=== PATIENT | female | born 1955 | race Caucasian/White ===

== ENCOUNTER 2022-05-10 14:10 | Emergency (ER) | payer MEDICARE ==
[~2022-05-10] VITALS: Ht 180.3 cm; Wt 124.7 kg
[2022-05-10] MEDS ORDERED: Amoxicillin500 MG PO (14:19)
[2022-05-10] MEDS ORDERED: TRAZ100 PO (14:21)
[2022-05-10] MEDS ORDERED: Vistaril50 MG PO (14:24)
== END 2022-05-10 15:00 | disposition home or self-care (01) ==
LOC: ER 14:10
DX: K04.7 Periapical abscess without sinus (principal); Z79.899 Other long term (current) drug therapy; Z76.0 Encounter for issue of repeat prescription
CPT/HCPCS: 99282

== ENCOUNTER → 2022-06-07 | Outpatient (CLI) | payer MEDICARE, OTHER ==
[~2022-06-07] MED LIST: Amoxicillin500 MG PO; TRAZ100 PO; Vistaril50 MG PO
[2022-06-07 17:10] LABS: BASOPHILS ABSOLUTE AUTO 0.05 K/mm3 (0.00-0.23); BASOPHILS PERCENT AUTO 1 % (0-2); EOSINOPHILS ABSOLUTE AUTO 0.14 K/mm3 (0.00-0.68); EOSINOPHILS PERCENT AUTO 2 % (0-6); Hematocrit 43.6 % (33.0-51.0); IMMATURE GRAN ABSOLUTE AUTO 0.09 K/mm3 (0.00-0.10); IMMATURE GRAN PERCENT AUTO 1 % (0-1); LYMPHOCYTES ABSOLUTE AUTO 1.35 K/mm3 (0.84-5.20); LYMPHOCYTES PERCENT AUTO 15 % (21-46); MONOCYTES ABSOLUTE AUTO 0.92 K/mm3 (0.16-1.47); MONOCYTES PERCENT AUTO 11 % (4-13); Mean Corpuscular HGB Conc 32.1 g/dL (31.5-36.5); Mean Corpuscular Volume 91 fL (80-100); Mean Platelet Volume 9.7 fL (9.1-12.4); NEUTROPHILS ABSOLUTE AUTO 6.24 K/mm3 (1.96-9.15); NEUTROPHILS PERCENT AUTO 71 % (41-73); Platelet Count 209 K/mm3 (150-400); RDW Coefficient Variation 13.3 % (11.7-14.2); RDW Standard Deviation 44.6 fL (35.1-46.3); Red Blood Cell Count 4.82 M/mm3 (3.80-5.20); White Blood Cell Count 8.79 K/mm3 (4.00-11.30)
[2022-06-07 17:35] LABS: CHOL/HDL RATIO 2.9; Cholesterol 157 mg/dL (50-200); HDL Cholesterol 54 mg/dL (>39); LDL/HDL RATIO 1.2; Low Density Lipoprotein Chol 67 mg/dL (<110); Thyroid Stimulating Hormone 2.415 uIU/mL (0.360-4.800); Triglycerides 181 mg/dL (30-160); Very Low Density Lipoprot Chol 36 mg/dL (6-32)
[2022-06-07 18:11] LABS: Percent Saturation 18.1 % (15.0-50.0)
== END | disposition home or self-care (01) ==
LOC: LAB SHORT 17:06
PROVIDERS: Physician Assistant
DX: E03.9 Hypothyroidism, unspecified (principal); E78.5 Hyperlipidemia, unspecified; E11.8 Type 2 diabetes mellitus with unspecified complications; I10 Essential (primary) hypertension
CPT/HCPCS: 80061; 82728; 83036; 83540; 83550; 84443; 85025

== ENCOUNTER 2022-11-22 09:06 | Day surgery (SDC) | payer MEDICARE, OTHER ==
[2022-11-22] VITALS (18 sets, daily range): BP systolic 93–147; BP diastolic 51–89
[~2022-11-22] VITALS: Ht 175.3 cm; Wt 101.1 kg
[~2022-11-22 09:06] MED LIST changes: +AMLO5 PO; +ATOR20 PO; +Cymbalta20 MG PO; +DICLOFENAC SOD100 GM TOP; +GABA100 PO; +HYDHCL25 PO; +LEVOTHYROXINE100 M10 PO; +METF500 PO; +METO25ER PO; +QUET25 PO
[2022-11-22] MEDS ORDERED: TRAZ100 PO (09:46)
--- NOTE | 2022-11-22 10:00 | NUR ---
Into sds via wheelchair. Pt reports 5/10 right hip pain. History, Chart, Medications and Allergies reviewed before start of procedure.Murmur auscultated.Lungs clear T/O to Auscultation. Patient confirms NPO status and agrees with scheduled surgery. Patient reports completing Chlorhexadine shower X2 prior to admission to hospital.Surgical site prepped with 2% Chlorhexidine cloth wipe.
--- NOTE | 2022-11-22 15:34 | NUR ---
Pt arrived to [facility] on own bed at 1515, awake, a/o x 4, pleasant/cooperative. post op vs commended and stable. surgical dressing with gauze and mefix tape x 2 L hip/knee c/d/i; pt reports pain at 5/10. capillary refill operative limb <3 seconds. pt denies n/v.
--- NOTE | 2022-11-22 17:07 | NUR ---
1430-pt tolerating PO intake, provided analgesia per mar, oriented to room/call light, appears to be resting calmly
[2022-11-23 00:15] VITALS: BP 110/72
[2022-11-23 03:49] VITALS: BP 114/70
[2022-11-23 03:49] LABS: BASOPHILS ABSOLUTE AUTO 0.03 K/mm3 (0.00-0.23); BASOPHILS PERCENT AUTO 0 % (0-2); EOSINOPHILS PERCENT AUTO 0 % (0-6); Hematocrit 35.7 % (33.0-51.0); Hemoglobin 11.5 g/dL (11.5-16.0); IMMATURE GRAN ABSOLUTE AUTO 0.04 K/mm3 (0.00-0.10); IMMATURE GRAN PERCENT AUTO 0 % (0-1); LYMPHOCYTES ABSOLUTE AUTO 1.29 K/mm3 (0.84-5.20); LYMPHOCYTES PERCENT AUTO 10 % (21-46); MONOCYTES ABSOLUTE AUTO 1.36 K/mm3 (0.16-1.47); MONOCYTES PERCENT AUTO 10 % (4-13); Mean Corpuscular HGB Conc 32.2 g/dL (31.5-36.5); Mean Corpuscular Volume 93 fL (80-100); Mean Platelet Volume 10.1 fL (9.1-12.4); NEUTROPHILS ABSOLUTE AUTO 10.53 K/mm3 (1.96-9.15); NEUTROPHILS PERCENT AUTO 80 % (41-73); Platelet Count 196 K/mm3 (150-400); RDW Coefficient Variation 13.1 % (11.7-14.2); RDW Standard Deviation 44.6 fL (35.1-46.3); Red Blood Cell Count 3.83 M/mm3 (3.80-5.20); White Blood Cell Count 13.25 K/mm3 (4.00-11.30)
[2022-11-23 04:06] LABS: Magnesium, Blood 1.8 mg/dL (1.6-2.4)
[2022-11-23 04:07] LABS: Bun/Creatinine Ratio 27.5 (12.0-20.0); Creatinine, Blood 0.51 mg/dL (0.40-1.00); Potassium, Blood 3.9 mmol/L (3.5-5.5)
--- NOTE | 2022-11-23 04:15 | NUR ---
SHIFT SUMMARY POD 1 POSTERIOR R SHERLY. NO ACUTE CHANGES OVERNIGHT. A&O X4. GAUZE/TAPE DRESSING C/D/I. PT REPORT PAIN WITHIN ACCEPTABLE LIMITS, MEDICATED PER EMAR. PT USE FWW FOR TOILETING, NO BM THIS SHIFT. VS WNL FOR PT. PT REPORTS SHE DID NOT SLEEP WELL THROUGHOUT THE NIGHT, PLESANT AND ENGAGES IN CONVERSATION. CALL LIGHT WITHIN REACH, BED IN LOWEST POSTION, WILL REPORT TO DAY NURSE.
[2022-11-23 07:59] VITALS: BP 131/74
--- NOTE | 2022-11-23 09:26 | NUR ---
ASSUMPTION OF CARE ASSUMED CARE AT APPROX 0700. PT AOX4, EASILY AROUSABLE W/ VERBAL STIMULI. PLEASANT, RECEPTIVE TO EDUCATION - REINFORCEMENT FREQ NEEDED IN REGARDS TO MOBILITY. PT REPORTS DIFFICULTY SLEEPING DURING THE NIGHT. VSS. PT REPORTED R HIP PAIN 5/10 THIS MORNING, ADMINISTERED SCHEDULED PO TYLENOL ORDERED W/ NO RELIEF REPORTED. PAIN INCREASED 7/10, PO NORCO 5MG ADMINISTERED, RELIEF REPORTED. POD 1 FOR R SHERLY, POSTERIOR APPROACH. PRECAUTIONS IN PLACE AND FREQ REINFORCED. DRESSINGS CHANGED BY DR. PISANO THIS MORNING. AQUACEL DRESSINGS, C/D/I. PT AMBULATES W/ SBA FWW. WORKED W/ OCCUPATIONAL THERAPY THIS MORNING. PT REQUIRES AN AFTERNOON SESSION W/ CAREGIVER PRESENT. CAREGIVER CALLED, IS ON HER WAY NOW. PLAN TO WORK W/ PHYSICAL THERAPY TODAY. CALL LIGHT IN REACH.
--- NOTE | 2022-11-23 13:12 | NUR ---
PT DECLINING AFTERNOON THERAPY SESSION. MD CONTACTED. PT EDUCATED THAT IF SHE LEAVES PRIOR TO MEETING DC CRITERIA THAT IS WOULD BE CONSIDERED LEAVING AMA. PT AGREED TO STAY FOR AFTERNOON SESSION. THERAPY NOTIFIED.
--- NOTE | 2022-11-23 14:49 | NUR ---
Pt. is awake and welcome my visit. Caregiver is present. Pt. is pleasant and a life review was facilitated. Considered matters of rick and belief. Listened with empathy, interest and engagement. Pt. verbalized her condience in recovery. Prayed with Pt. Pt. verbalized gratitude for the spiritual care visit.
[2022-11-23 15:49] VITALS: BP 93/63
--- NOTE | 2022-11-23 16:29 | NUR ---
Patient required reminders and cuing on hip precautions and using her walker throughout the day. Discussed these and risks of dilocation extensively with patient and caregiver. Staff and therapy concerned about patient safety at home as she only has a caregiver for 20hrs a week. Discussed with DR. Keen, talked with patient regarding friends/family to provide 24/7 care. She reports she does have people available that are going to help her and she plans on staying at a friends house, starting tonight. Palacios the caregiver assures me that she will stay with her until the friend comes to get her and she has been in contact with her case reviewer to increase her hours for the patient. Caregiver states "I will stay with her all the time, after my hours as a friend or until other friends are with her so she is never alone"
--- NOTE | 2022-11-23 17:28 | NUR ---
DISCHARGE SUMMARY S/P R SHERLY, POD 1. VSS. TOLERATING PO INTAKE. VOIDING. PT AMBULATING W/ SBA FWW & GB - REQUIRING FREQUENT REINFORCEMENT OF POSTERIOR HIP PRECAUTIONS. PT/OT ZAKI COMPLETED THIS MORNING, PT WAS NOT CLEARED BY THERAPY THIS MORNING - SECOND PHYSICAL THERAPY SESSION COMPLETED W/ PHYSICAL THERAPY STATING THAT PT NEEDS CLOSE MONITORING TO REINFORCE HIP PRECAUTIONS. DISCUSSED W/ JUANITO AND . JUANITO TO PT RM TO DISCUSS DC PLAN. PT STATES THAT CAREGIVER AND OR FRIENDS WILL BE AVAILABLE AT ALL TIMES. PT CONFIRMS THAT SHE HAS TIMES DESIGNATED FOR 16/10 COVERAGE BETWEEN CAREGIVER AND FRIENDS FOR REINFORCEMENT/ASSISTANCE W/ MOBILITY RESTRICTIONS AT HOME. PROVIDED DISCHARGE EDUCATION, STRONGLY REINFORCING POSTERIOR HIP PRECAUTIONS AND SAFE MOBILITY AT HOME TO PT AND CAREGIVER. IV RMVD. PERSONAL BELONGINGS W/ PT. PT TRANSFERRED TO PERSONAL VEHICLE VIA WHEELCHAIR.
== END 2022-11-23 16:45 | disposition home or self-care (01) ==
LOC: ORSCMMR 09:06 → SURS 09:06 → ORSCMMR 09:08 → ORD 10:45 → ORSCMMR 10:45 → SURS 15:11 → ORSCMMR 11-23 16:45
PROVIDERS: Orthopaedic Surgery
PROC: 0SR90JA Replacement of Right Hip Joint with Synthetic Substitute, Uncemented, Open Approach (ICD-10-PCS; principal; 2022-11-22 10:45)
DX: M16.11 Unilateral primary osteoarthritis, right hip (principal); E11.9 Type 2 diabetes mellitus without complications; I10 Essential (primary) hypertension; E03.9 Hypothyroidism, unspecified; Z79.84 Long term (current) use of oral hypoglycemic drugs; Z79.899 Other long term (current) drug therapy; E66.9 Obesity, unspecified; Z68.35 Body mass index [BMI] 35.0-35.9, adult
CPT/HCPCS: 36415; 72170; 80048; 82947; 83735; 85025; 97110; 97116; 97162; 97165; 97530; 97535; A9270; C1713; C1776; J0171; J0690; J0735; J1100; J1885; J2250; J2371; J2405; J2704; J2795; J3010; J7120

== ENCOUNTER 2023-10-12 14:18 | Emergency (ER) | payer MEDICARE, OTHER ==
[~2023-10-12] VITALS: Ht 175.3 cm; Wt 93.4 kg
[2023-10-12 16:35] VITALS: BP 163/95
[2023-10-12] MEDS ORDERED: METF500 PO (16:49)
== END 2023-10-12 18:49 | disposition home or self-care (01) ==
LOC: ER 14:18
DX: Z47.1 Aftercare following joint replacement surgery (principal); M79.89 Other specified soft tissue disorders; Z96.612 Presence of left artificial shoulder joint; E11.9 Type 2 diabetes mellitus without complications; I10 Essential (primary) hypertension; E03.9 Hypothyroidism, unspecified; Z79.84 Long term (current) use of oral hypoglycemic drugs; Z79.899 Other long term (current) drug therapy; Z88.8 Allergy status to other drugs, medicaments and biological substances
CPT/HCPCS: 82947; 93971; 99284-25

== ENCOUNTER 2025-01-17 10:19 | Emergency (ER) | payer MEDICARE, OTHER ==
[~2025-01-17] VITALS: Ht 175.3 cm; Wt 93.9 kg
[2025-01-17 11:02] LABS: BASOPHILS ABSOLUTE AUTO 0.05 K/mm3 (0.00-0.23); BASOPHILS PERCENT AUTO 1 % (0-2); EOSINOPHILS ABSOLUTE AUTO 0.13 K/mm3 (0.00-0.68); EOSINOPHILS PERCENT AUTO 2 % (0-6); Hematocrit 40.4 % (33.0-51.0); Hemoglobin 13.4 g/dL (11.5-16.0); IMMATURE GRAN ABSOLUTE AUTO 0.00 K/mm3 (0.00-0.10); IMMATURE GRAN PERCENT AUTO 0 % (0-1); LYMPHOCYTES ABSOLUTE AUTO 1.94 K/mm3 (0.84-5.20); LYMPHOCYTES PERCENT AUTO 31 % (21-46); MONOCYTES ABSOLUTE AUTO 0.53 K/mm3 (0.16-1.47); MONOCYTES PERCENT AUTO 9 % (4-13); Mean Corpuscular HGB Conc 33.2 g/dL (31.5-36.5); Mean Corpuscular Volume 91 fL (80-100); NEUTROPHILS ABSOLUTE AUTO 3.52 K/mm3 (1.96-9.15); NEUTROPHILS PERCENT AUTO 57 % (41-73); NRBC ABSOLUTE 0.00 K/mm3 (0.00-0.02); NRBC Auto 0.0 /100 WBC (0.0-0.2); Platelet Count 211 K/mm3 (150-400); RDW Coefficient Variation 13.4 % (11.7-14.2); RDW Standard Deviation 45.4 fL (35.1-46.3)
[2025-01-17 11:14] LABS: Alanine Aminotransfer (ALT/SGP 22.0 U/L (12-78); Albumin, Blood 3.9 g/dL (3.4-5.0); Albumin/Globulin Ratio 1.1 (0.8-1.8); Anion Gap 7.0 mmol/L (3-11); Aspartate Aminotrans (AST/SGOT 22.0 U/L (12-37); Bilirubin, Total 0.4 mg/dL (0.1-1.0); Blood Urea Nitrogen 19.0 mg/dL (8-24); CO2, Blood 28.0 mmol/L (21-32); Calcium, Blood 9.4 mg/dL (8.5-10.1); Chloride, Blood 103.0 mmol/L (98-108); Creatinine, Blood 0.56 mg/dL (0.40-1.00); Globulin, Blood 3.4 g/dL (2.2-4.0); Glucose, Blood 128.0 mg/dL (70-99); Potassium, Blood 4.0 mmol/L (3.5-5.5); Sodium, Blood 134.0 mmol/L (136-145); Total Protein, Blood 7.3 g/dL (6.4-8.2)
[2025-01-17 12:30] VITALS: BP 111/86
[2025-01-17] MEDS ORDERED: HYDHCL25 PO (12:32)
[2025-01-17] MEDS ORDERED: ALPR.5 PO (12:32)
== END 2025-01-17 12:50 | disposition home or self-care (01) ==
LOC: ER 10:19
PROVIDERS: Emergency Medicine
DX: F41.9 Anxiety disorder, unspecified (principal); G47.00 Insomnia, unspecified; R07.89 Other chest pain; I10 Essential (primary) hypertension; E11.9 Type 2 diabetes mellitus without complications; Z79.84 Long term (current) use of oral hypoglycemic drugs; Z79.899 Other long term (current) drug therapy
CPT/HCPCS: 71045; 80053; 84484; 85025; 93005; 93010; 99285-25; A9270